=== PATIENT | male | born 1985 | race Caucasian/White ===

== ENCOUNTER 2024-02-28 07:59 | Emergency (ER) | payer OTHER, SELFPAY ==
[2024-02-28 08:01] VITALS: BP 169/94
[2024-02-28 08:32] VITALS: BMI 24.5
--- NOTE | 2024-02-28 08:32 | ED.GENMED ---
History of Present Illness
General
Chief Complaint: Abdominal Symptoms
Time Seen by Provider: 02/28/24 08:09
History of Present Illness
History of Present Illness:
38-year-old male with reported history of MS presenting to the emergency department for abdominal discomfort. Patient reports 5 days ago he went to [place], had some alcohol and pasta. The following day, felt very unwell, so hydrated and rested.
He felt normal the following day and yesterday. He again had pasta last evening, and woke up this morning vomiting with upper abdominal pain. Denies history of abdominal surgeries. Denies fever. He reports for the past year he has had been
having similar symptoms about every 3 months, resolves after about 24 hours. He has had testing with his doctor, unclear etiology. He expresses concern for possible celiac's, however tolerates gluten and other gluten products. Has been unable to
tolerate p.o. this morning. Denies chest pain or difficulty breathing. Denies changes in stool. Denies additional acute medical complaints
Phy Exam
Physical Exam
Physical Exam:
General: Well-appearing, no clinical signs of dehydration, nontoxic and in no acute distress
HEENT: protecting airway
Neck: appears supple
CV: Normal heart rate, regular rhythm, no evidence of cyanosis
Resp: No accessory muscle use, no increased work of breathing, lungs clear to auscultation bilaterally
Abd: Soft and non-distended, focal tenderness epigastric and right upper quadrant abdomen
Extremities: No deformities, no swelling, no erythema
Neuro: alert, no focal neurologic deficit
: deferred
Rectal: deferred
Psych: Normal affect
Skin: Intact
Course
Orders/Labs/Results
Orders:
Orders
02/28/24 08:20
0.9% Sodium Chloride 1000 ml [Nss] 1,000 ml IV BOLUS
Ketorolac [Toradol] 15 mg IV NOW STA
Ondansetron Injectable [Zofran] 4 mg IV NOW STA
02/28/24 08:21
US Abdomen Complete/Upper Urgent
Comment:
Reason For Exam: RUQ pain, vomiting
02/28/24 08:41
Complete Blood Count/With Diff Urgent
Comprehensive Metabolic Panel Urgent
Lipase Urgent
02/28/24 09:49
Urinalysis Reflex To Culture Urgent
Date Specimen was Collected: 02/28/24
Time Specimen was Collected: 09:45
02/28/24 10:18
CT Abd/pelvis W Iv Cont Urgent
Comment:
Reason For Exam: upper abd pain
Famotidine [Pepcid] 20 mg IV NOW STA
Morphine Sulfate 4 mg IV NOW STA
Abnormal Lab Results
02/28/24 02/28/24
08:41 09:49
RBC 4.62 L 10^6/uL
(4.70-6.10)
MCH 32.9 H pg
(27.0-31.0)
Absolute Neuts (auto) 8.5 H 10^3/uL
(1.4-6.5)
Absolute Lymphs (auto) 1.1 L 10^3/uL
(1.2-3.4)
Neutrophils % 85.5 H %
(42.2-75.2)
Lymphocytes % 10.5 L %
(20.5-51.1)
Glucose 140 H mg/dl
(70-99)
Urine Ketones 1+ A
(Negative)
02/28/24 08:41
02/28/24 08:41
Vital Signs
Initial and Last Documented VS:
Initial Vital Signs
Temp Pulse Resp BP Pulse Ox
97.8 F 62 18 169/94 100
02/28/24 08:01 02/28/24 08:01 02/28/24 08:01 02/28/24 08:01 02/28/24 08:01
Last Documented Vital Signs
Temp Pulse Resp BP Pulse Ox
97.8 F 62 18 155/94 99
02/28/24 08:01 02/28/24 08:01 02/28/24 08:01 02/28/24 11:00 02/28/24 11:30
MDM/Problems Addressed
MDM/Problems Addressed:
38-year-old male with reported history of MS presenting to the emergency department for upper abdominal pain, nausea, vomiting. Vital signs on arrival are significant for hypertension.
On exam, patient is in no acute distress, however does appear uncomfortable secondary to symptoms. Focal tenderness to epigastric abdomen and right upper quadrant. Differential considerations include GERD versus gastritis versus esophagitis versus
cholelithiasis versus cholecystitis. Given association with food and recurrent episodes, suspect gallbladder pathology. Plan for laboratory analysis right upper quadrant ultrasound imaging. Will treat with IV fluids, Toradol, Zofran and reassess
for improvement.
10:15 -patient's ultrasound within normal limits, labs unremarkable. Patient is still symptomatic. Will plan for CT abdomen and pelvis. Will add morphine and Pepcid
11:50 -CT is negative for acute process. Patient more comfortable on examination. Suspect gastric pathology. Patient has never seen a GI doctor for symptoms, recommending GI follow-up. Will start on a PPI. Diet modification discussed.
Otherwise feel stable for discharge. Return precautions discussed and patient verbalized understanding
*Critical Care Note
Total Time (30-74mins, 75-104mins- exclusive of procedures): Not Applicable
ED Attending Note
-
Portions of this chart may have been created with voice recognition software.� Occasional wrong word or��sound alike� substitutions may have occurred due to the inherent limitations of voice recognition software.
Discharge Plan
Departure
Prescriptions:
No Action
ondansetron 4 mg tablet,disintegrating
4 mg PO Q8H PRN (Reason: nausea and vomiting) Qty: 7 0RF
Referrals:
Jermaine Isidro MD, Resident [Family Provider] -
Interventions
Interventions:
*Risk Screen - Suicide Last Done: 02/28/24 08:04
*General Assessment Last Done: 02/28/24 08:42
*Neglect/Abuse Screening Last Done: 02/28/24 08:04
ED- Fall Risk Assessment Last Done: 02/28/24 08:51
*ED COVID-19 Vaccine History Last Done: 02/28/24 08:42
Discharge Date and Time
Print Language: BARBADIAN
[2024-02-28] MEDS: ZOFRAN 4 MG IV (08:37)
[2024-02-28] MEDS: TORADOL 15 MG IV (08:38)
[2024-02-28] MEDS: NSS 1000 IV (08:39)
[2024-02-28 09:05] LABS: % Basophils 0.2 % (0-2); % Eosinophils 0.3 % (0-6); % Immature Granulocytes 0.2 % (0-0.5); % Lymphocytes 10.5 % (20.5-51.1); % Monocytes 3.3 % (1.7-9.3); % Neutrophils 85.5 % (42.2-75.2); Absolute Lymphocytes 1.1 10^3/uL (1.2-3.4); Absolute Monocytes 0.3 10^3/uL (0.1-0.6); Absolute Neutrophils 8.5 10^3/uL (1.4-6.5); Hematocrit 41.3 % (39.0-52.0); Hemoglobin 15.2 g/dL (13.0-18.0); Mean Corp Hgb Conc. 36.8 g/dL (33.0-37.0); Mean Corpuscular Hgb 32.9 pg (27.0-31.0); Mean Corpuscular Volume 89.4 fL (80.0-94.0); Mean Platelet Volume 9.8 fL (7.4-10.4); Nucleated Red Blood Cells % 0 % (-); Platelet Count 279 10^3/uL (130-400); Red Blood Cell Count 4.62 10^6/uL (4.70-6.10); Red Cell Dist. Width 11.6 % (11.5-14.5)
[2024-02-28 09:20] LABS: ALT (SGPT) 45 U/L (0-50); AST (SGOT) 30 U/L (17-59); Albumin 4.7 g/dl (3.5-5.0); Alkaline Phosphatase 58 U/L (38-126); Blood Urea Nitrogen 18 mg/dl (9-20); Calcium 9.9 mg/dl (8.4-10.2); Carbon Dioxide 26 mmol/L (22-30); Chloride 100 mmol/L (98-107); Estimated Creatinine Clearance 79 ml/min; Glucose 140 mg/dl (70-99); Lipase 103 U/L (23-300); Potassium 3.9 mmol/L (3.5-5.1); Sodium 139 mmol/L (135-145); Total Bilirubin 0.9 mg/dl (0.2-1.3); Total Protein 6.9 g/dl (6.3-8.2); eGFR > 60.00
[2024-02-28 09:59] LABS: Urine Albumin Negative (Neg - Trace); Urine Bilirubin Negative (Negative); Urine Character Clear (Clear); Urine Color Yellow; Urine Glucose Negative (Negative); Urine Ketone 1+ (Negative); Urine Leukocyte Negative (Negative); Urine Nitrite Negative (Negative); Urine Occult Blood Negative (Negative); Urine Specific Gravity 1.015 (<1.030); Urine Urobilinogen Negative (Neg - 1+)
[2024-02-28] MEDS: MORPHINE SULFATE 4 MG IV (10:21)
[2024-02-28] MEDS: PEPCID 20 MG IV (10:21)
[2024-02-28 11:00] VITALS: BP 155/94
[2024-02-28 12:18] VITALS: BP 156/91
[2024-02-28 12:22] VITALS: BP 156/91
== END 2024-02-28 12:28 | disposition home or self-care (01) ==
LOC: EMR 07:59
PROVIDERS: EMERGENCY PHYSICIAN Student in an Organized Health Care Education/Training Program; FAMILY PHYSICIAN Student in an Organized Health Care Education/Training Program
DX: K29.70 Gastritis, unspecified, without bleeding (principal); G35 Multiple sclerosis
CPT/HCPCS: 99284; 96374; 96375; 96361; 74177; 76700; 80053; 81003; 83690; 85025; Q9967